=== PATIENT | female | born 1960 | race Caucasian/White ===

== ENCOUNTER 2016-07-04 15:36 | Emergency (ER) | payer OTHER ==
[2016-07-04] MEDS ORDERED: DEXAMETHASONE 10 MG/ML VIAL ONE (16:54)
[2016-07-04] MEDS ORDERED: CHERRY SYRUP 10 ML UDC PO ONE (16:54)
[2016-07-04] MEDS ORDERED: DEXAMETHASONE 10 MG/ML VIAL PO STA (16:54)
--- NOTE | 2016-07-04 16:59 | ED Physician Documentation ---
PD HPI TRUNK INJURY - Stated complaint Stated Complaint: RT SIDE PAIN - Chief complaint Chief Complaint: Abd Pain - History obtained from History obtained from: Patient - History of Present Illness Location: Right chest Type of injury: Other (leaning over the console in the car and felt a crack and has specific pain in the right chest) Timing - onset: How many weeks ago (1) Timing - duration: Weeks (1) Timing - details: Gradual onset, Still present Quality: Pain, Sharp Improved by: Rest, Immobilization, Meds Worsened by: Moving, Palpating Associated symtptoms: No: Weakness, Numbness, Tingling Contributing factors: No: Anticoagulated Where injury occured: Other (car) Similar symptoms before: Diagnosis (rib fracture with a bear hug) Recently seen: Not recently seen - Additional information Additional information: 56 y/o female has had a chest wall contusion with leaning over the console in the car. She heard a crack and she has specific pain in the right side similar to what she had when she broke a rib. This happened about a week ago and she has tried everything at home and is not getting much relief and she was expecting this to improve and about the 5th day after her pain increased and she has now come to the ED for evaluation. Her cough is not changed from her usual. Review of Systems Constitutional: denies: Fever Eyes: denies: Decreased vision Ears: denies: Ear pain Nose: denies: Congestion Throat: denies: Sore throat Cardiac: reports: Chest pain / pressure. denies: Palpitations Respiratory: reports: Cough. denies: Dyspnea GI: denies: Abdominal Pain, Nausea, Vomiting : denies: Dysuria, Frequency PD PAST MEDICAL HISTORY - Past Medical History Cardiovascular: Hypertension, [place] Respiratory: Asthma Neuro: CVA Endocrine/Autoimmune: Type 2 diabetes GI: Hiatal hernia, C.difficile, Chronic diarrhea, Hemorrhoids, Diverticulitis DEBONER: None : None, Frequency HEENT: None Psych: Post traumatic stress disorder Musculoskeletal: Osteoarthritis, Fibromyalgia, Rheumatoid arthritis, Chronic back pain Derm: Eczema - Past Surgical History Past Surgical History: Yes /DEBONER: section Cardiovascular: Coronary stent - Present Medications Home Medications: Ambulatory Orders Medication Instructions Recorded Confirmed Albuterol Sulfate [Albuterol 1 puffs IH ONCE PRN 01/25/14 03/14/15 Sulfate Hfa] Insulin Aspart Protam & Aspart 0 unit SQ ONCE PRN 01/25/14 05/01/15 [Novolog Mix 70-30 Flexpen Syrn] Insulin Glargine [Lantus] 80 units SQ ONCE PRN 01/25/14 05/01/15 Cetirizine HCl/Pseudoephedrine 1 each PO BID #30 tab.er.12h 03/06/14 03/14/15 [Zyrtec-D Tablet] Glipizide [Glucotrol] 40 mg PO DAILY 03/12/14 05/01/15 Metformin HCl [Fortamet] 1,000 mg PO BID 03/12/14 05/01/15 Atenolol 25 mg PO DAILY 07/16/15 07/16/15 Dicyclomine HCl [Bentyl] 20 mg PO QID #20 tablet 07/16/15 Levothyroxine Sodium [Synthroid] 375 mcg PO DAILY 07/16/15 07/16/15 Omeprazole [PriLOSEC] 20 mg PO DAILY 07/16/15 07/16/15 Ondansetron HCl [Zofran] 4 mg PO Q6H PRN #10 tablet 07/16/15 Oxycodone HCl/Acetaminophen 1 - 2 each PO Q6HR PRN #20 tablet 07/04/16 [Percocet 5-325 mg Tablet] - Allergies Allergies/Adverse Reactions: Allergies Allergy/AdvReac Type Severity Reaction Status Date / Time codeine Allergy Unknown Verified 05/01/15 21:13 Penicillins Allergy Unknown Verified 05/01/15 21:13 mushrooms Allergy Unknown Uncoded 03/14/15 13:47 - Social History Does the pt smoke?: Yes Smoking Status: Current every day smoker Does the pt drink ETOH?: No Does the pt have substance abuse?: No - Immunizations Immunizations are current?: Yes - POLST Patient has POLST: No PD ED PE NORMAL - Vitals Vital signs reviewed: Yes (hypertensive ) - General General: Alert and oriented X 3, No acute distress, Well developed/nourished - HEENT HEENT: Atraumatic, PERRL - Neck Neck: Supple, no meningeal sign - Cardiac Cardiac: RRR, No murmur - Respiratory Respiratory: No respiratory distress, Clear bilaterally, Other (specific point tenderness to a rib on the right without crepitnence) - Abdomen Abdomen: Soft, Non tender - Back Back: No CVA TTP, No spinal TTP - Derm Derm: Normal color, Warm and dry, No rash - Extremities Extremities: No deformity, No edema - Neuro Neuro: No motor deficit, No sensory deficit - Psych Psych: Normal mood, Normal affect Results - Vitals Vitals: Vital Signs - 24 hr 07/04/16 15:41 Temperature 36.1 C L Heart Rate 100 Respiratory 16 Rate Blood Pressure 154/82 H O2 Saturation 99 Oxygen O2 Source Room air PD MEDICAL DECISION MAKING - ED course Complexity details: reviewed old records, reviewed results, re-evaluated patient , considered differential, d/w patient, d/w family ED course: 56 y/o female with a chest wall contusion and pain in a specific rib has had this before and we discussed the utility of x-ray and that it would not likely identity management consultant. I do not suspect pneumothorax or pneumonia as a cause for her pain and here in the ED we have forgone the x-ray and she is administered decadron and we will write a script for some pain medication. Departure - Departure Disposition: 01 Home, Self Care Clinical Impression: Chest wall contusion Qualifiers: Encounter type: initial encounter Laterality: right Qualified Code(s): S20.211A - Contusion of right front wall of thorax, initial encounter Condition: Stable Instructions: ED Contusion Chest Wall Follow-Up: [facility] [Provider Group] Prescriptions: Oxycodone HCl/Acetaminophen [Percocet 5-325 mg Tablet] 1 - 2 each PO Q6HR PRN # 20 tablet PRN Reason: Pain
[2016-07-04 17:11] VITALS: BP 124/71
== END 2016-07-04 17:11 | disposition home or self-care (01) ==
LOC: ED 15:36
DX: S20.211A Contusion of right front wall of thorax, initial encounter (principal); W22.8XXA Striking against or struck by other objects, initial encounter; I10 Essential (primary) hypertension; I25.2 Old myocardial infarction; J45.909 Unspecified asthma, uncomplicated; E11.9 Type 2 diabetes mellitus without complications; Z79.4 Long term (current) use of insulin; Z79.84 Long term (current) use of oral hypoglycemic drugs; Z86.73 Personal history of transient ischemic attack (TIA), and cerebral infarction without residual deficits; Z87.19 Personal history of other diseases of the digestive system; M19.90 Unspecified osteoarthritis, unspecified site; F17.200 Nicotine dependence, unspecified, uncomplicated
CPT/HCPCS: 99283; A9270

== ENCOUNTER 2016-07-12 11:55 | Emergency (ER) | payer OTHER ==
[2016-07-12 12:04] VITALS: BP 167/90
--- NOTE | 2016-07-12 12:11 | ED Physician Documentation ---
History of Present Illness - Stated complaint Stated Complaint: R RIB PX/RX BACK PX - Chief complaint Chief Complaint: General - Additonal information Additional information: hx from pt 56 female 2 weeks ago reached across the console of her car and felt a crack in her low ant/axillary right ribs has had pain since and now it has spread to her right posterior ribs too she sent a message to her PMD at [facility] who write back that she should come to the ER for a cardiac evaluation due to her DM and HTN Review of Systems Constitutional: denies: Fever Cardiac: reports: Chest pain / pressure Respiratory: denies: Dyspnea, Cough GI: denies: Abdominal Pain, Nausea, Vomiting Immunocompromised: denies: Immunocompromised PD PAST MEDICAL HISTORY - Past Medical History Past Medical History: Yes Cardiovascular: Hypertension, [place] Respiratory: Asthma Neuro: CVA Endocrine/Autoimmune: Type 2 diabetes GI: Hiatal hernia, C.difficile, Chronic diarrhea, Hemorrhoids, Diverticulitis CONTACT LENS EDGE BUFFER: None : None, Frequency HEENT: None Psych: Post traumatic stress disorder Musculoskeletal: Osteoarthritis, Fibromyalgia, Rheumatoid arthritis, Chronic back pain Derm: Eczema - Past Surgical History Past Surgical History: Yes General: Hiatal hernia repair /CONTACT LENS EDGE BUFFER: section Cardiovascular: Coronary stent - Present Medications Home Medications: Ambulatory Orders Medication Instructions Recorded Confirmed Albuterol Sulfate [Albuterol 1 puffs IH PRN PRN 01/25/14 03/14/15 Sulfate Hfa] Insulin Aspart Protam & Aspart 50 unit SQ ONCE PRN 01/25/14 05/01/15 [Novolog Mix 70-30 Flexpen Syrn] Insulin Glargine [Lantus] 10 units SQ ONCE PRN 01/25/14 05/01/15 Glipizide [Glucotrol] 5 mg PO DAILY 03/12/14 07/12/16 Metformin HCl [Fortamet] 1,000 mg PO BID 03/12/14 07/12/16 Atenolol 25 mg PO DAILY 07/16/15 07/12/16 Levothyroxine Sodium [Synthroid] 137 mcg PO DAILY 07/16/15 07/12/16 Omeprazole [PriLOSEC] 40 mg PO DAILY 07/16/15 07/12/16 Lidocaine Patch 5% [Lidoderm Patch] 1 each TOP DAILY PRN #10 patch 07/12/16 Oxycodone HCl/Acetaminophen 4 - 8 each PO Q6HR PRN 07/12/16 07/12/16 [Percocet 5-325 mg Tablet] - Allergies Allergies/Adverse Reactions: Allergies Allergy/AdvReac Type Severity Reaction Status Date / Time codeine Allergy Unknown Verified 07/12/16 12:06 Penicillins Allergy Unknown Verified 07/12/16 12:06 mushrooms Allergy Unknown Uncoded 03/14/15 13:47 - Social History Does the pt smoke?: Yes Smoking Status: Current every day smoker Does the pt drink ETOH?: No Does the pt have substance abuse?: No - Immunizations Immunizations are current?: Yes - POLST Patient has POLST: No PD ED PE NORMAL - Vitals Vital signs reviewed: Yes - Cardiac Cardiac: RRR - Respiratory Respiratory: No respiratory distress, Clear bilaterally, Other (TTP ante to lateral low right ribs s crepitus or bruising, no abd TTP, no neck TTP) - Abdomen Abdomen: Soft, Non tender - Back Back: No spinal TTP - Derm Derm: Normal color - Neuro Neuro: Alert and oriented X 3 Results - Vitals Vitals: Vital Signs - 24 hr 07/12/16 07/12/16 12:00 13:50 Temperature 36.6 C Heart Rate 93 84 Respiratory 18 18 Rate Blood Pressure 167/90 H O2 Saturation 97 97 Oxygen O2 Source Room air - Labs Labs: Laboratory Tests 07/12/16 12:25 Troponin I < 0.04 - Rads (name of study) ribs CXR Radiology: See rad report (minimally displaced R 7th rib fx no pneumo) PD MEDICAL DECISION MAKING - ED course ED course: sounds very mechanical and pot has chest wall TTP - sent by PMD for a cardiac eval - will get trop and if neg after two weeks of pain think ACS is effectively ruled out Departure - Departure Disposition: 01 Home, Self Care Clinical Impression: Rib fracture Qualifiers: Encounter type: initial encounter Rib fracture type: single rib Fracture type: closed Laterality: right Qualified Code(s): S22.31XA - Fracture of one rib, right side, initial encounter for closed fracture Condition: Good Instructions: ED Fx Rib Follow-Up: Cary Krueger MD [Primary Care Provider] - Prescriptions: Lidocaine Patch 5% [Lidoderm Patch] 1 each TOP DAILY PRN #10 patch PRN Reason: Pain Ibuprofen [Motrin] 400 mg PO Q6H PRN #30 tablet PRN Reason: Pain Comments: Your heart checked out fine Your xray shows a rib fracture where you hurt - but no underlying lung injury Recommend using lidocaine patches and tylenol for the pain - motrin would help too but you cannot take motrin due to GI upset Please use the breathing device we gave you to help keep your lungs inflated and prevent collapse Also please follow up with your PMD about your blood pressure - it was high today
--- NOTE | 2016-07-12 13:07 | XRAY Preliminary Report ---
Exam: XR Ribs w/PA Chest RT IMPRESSION: Findings highly suspicious for minimally displaced fracture of the anterior right seventh rib. The previously noted anterior right ninth rib fracture is not as well visualized on this exam. [facility] SITE ID: [id number]
--- NOTE | 2016-07-12 13:10 | XRAY Report ---
EXAM: RIGHT RIB RADIOGRAPHY AND PA CHEST EXAM DATE: 07/12/2016 12:43 PM. CLINICAL HISTORY: Right rib pain after injury 2 weeks ago. COMPARISON: 02/01/2015. TECHNIQUE: 2 views right ribs. One view chest. FINDINGS: Bones: Findings suspicious for a minimally displaced distal anterior right seventh rib fracture. No o ther displaced or definite rib fractures or acute bone lesions. Degenerative disease of the thoracic spine. Lungs: No focal opacities evident. No pneumothorax or pleural effusions. Mediastinum: Heart and cardiomediastinal contours are unremarkable. Other: None. IMPRESSION: Findings highly suspicious for minimally displaced fracture of the anterior right seventh rib. The previously noted anterior right ninth rib fracture is not as well visualized on this exam. [facility] Referring Provider Line: [phone] SITE ID: [id number]
== END 2016-07-12 14:26 | disposition home or self-care (01) ==
LOC: ED 11:55
DX: S22.31XA Fracture of one rib, right side, initial encounter for closed fracture (principal); X50.0XXA Overexertion from strenuous movement or load, initial encounter; I10 Essential (primary) hypertension; I25.2 Old myocardial infarction; J45.909 Unspecified asthma, uncomplicated; E11.9 Type 2 diabetes mellitus without complications; Z79.4 Long term (current) use of insulin; M19.90 Unspecified osteoarthritis, unspecified site; M79.7 Fibromyalgia; M06.9 Rheumatoid arthritis, unspecified; Z86.73 Personal history of transient ischemic attack (TIA), and cerebral infarction without residual deficits; F17.200 Nicotine dependence, unspecified, uncomplicated
CPT/HCPCS: 36415; 84484; 99283; 99284

== ENCOUNTER 2016-08-17 19:01 | Emergency (ER) | payer OTHER ==
[2016-08-17 19:23] LABS: BILIRUBIN,URINE NEGATIVE (NEGATIVE)
[2016-08-17 19:25] LABS: UA CHARGE (STRIP ONLY) YES; UR CULTURE IF IND NOT INDICATED
[2016-08-17 20:11] LABS: CALCIUM 8.9 mg/dL (8.5-10.3); CREATININE 0.5 mg/dL (0.4-1.0); POTASSIUM 4.2 mmol/L (3.5-5.0)
[2016-08-17 20:29] LABS: HEMOGLOBIN A1C 1.69 g/dL
[2016-08-17 21:05] LABS: BASOPHILS # (AUTO) 0.1 10^3/uL (0.0-0.1); BASOPHILS % (AUTO) 0.4 %; HCT - HEMATOCRIT 40.7 % (37.0-47.0); HGB - HEMOGLOBIN 13.2 g/dL (12.0-16.0); LYMPHOCYTES # (AUTO) 1.8 10^3/uL (1.5-3.5); LYMPHOCYTES % (AUTO) 13.2 %; MEAN CORPUSCULAR HEMOGLOBIN 29.5 pg (27.0-31.0); MEAN CORPUSCULAR HGB CONC 32.5 g/dL (32.0-36.0); MEAN CORPUSCULAR VOLUME 90.9 fL (81.0-99.0); MEAN PLATELET VOLUME 9.1 fL (7.9-10.8); MONOCYTES # (AUTO) 0.6 10^3/uL (0.0-1.0); MONOCYTES % (AUTO) 4.7 %; NEUTROPHILS % (AUTO) 81.7 %; RED BLOOD COUNT 4.48 10^6/uL (4.20-5.40); UNCORRECTED WHITE BLOOD COUNT 13.5 x10^3/uL; WHITE BLOOD COUNT 13.5 x10^3/uL (4.8-10.8)
--- NOTE | 2016-08-17 21:42 | ED Physician Documentation ---
History of Present Illness - Stated complaint Stated Complaint: LOW BLOOD SUGAR - Chief complaint Chief Complaint: General - History obtained from History obtained from: Patient - Additonal information Additional information: Patient is a pleasant 56-year-old female with a history of type 2 diabetes on Lantus, NovoLog, and a maximal dose metformin also with glipizide. She has been running high for the past couple weeks but today had a low blood sugar. She treated it at home with the administration of juice with sugar and currently feels better. In general she has been losing weight over the The last 6 months. She denies any signs or symptoms of infection. There is no chest pain, shortness of breath, nausea, vomiting, constipation or diarrhea. She denies any lower urinary symptoms. She does take her Lantus at irregular times Most on a as needed basis. She is supposed to take 50 units nightly. She is on a sliding scale for the NovoLog which she mostly adheres to. Review of systems: For pertinent positive and negatives in the review of systems please see history of present illness. Otherwise all other systems have been reviewed and are negative. Dragon disclaimer: Parts of this medical record were created using voice recognition technology. Because of the inherent limitations of this system occasional same sounding word substitutions do occur and persist despite proofreading. Please read the document for context. Review of Systems Ten Systems: 10 systems reviewed and negative Constitutional: denies: Fever, Chills Cardiac: denies: Chest pain / pressure, Palpitations Respiratory: denies: Dyspnea, Cough GI: reports: Nausea. denies: Abdominal Pain, Abdominal Swelling, Diarrhea, Hematemesis : denies: Dysuria, Frequency, Hesitancy PD PAST MEDICAL HISTORY - Past Medical History Cardiovascular: Hypertension, [place] Respiratory: Asthma Neuro: CVA Endocrine/Autoimmune: Type 2 diabetes GI: Hiatal hernia, C.difficile, Chronic diarrhea, Hemorrhoids, Diverticulitis CABLE PULLER: None : None, Frequency HEENT: None Psych: Post traumatic stress disorder Musculoskeletal: Osteoarthritis, Fibromyalgia, Rheumatoid arthritis, Chronic back pain Derm: Eczema - Past Surgical History Past Surgical History: Yes General: Hiatal hernia repair /CABLE PULLER: section Cardiovascular: Coronary stent - Present Medications Home Medications: Ambulatory Orders Medication Instructions Recorded Confirmed Albuterol Sulfate [Albuterol 1 puffs IH PRN PRN 12/20/14 07/12/17 Sulfate Hfa] Insulin Aspart Protam & Aspart 50 unit SQ ONCE PRN 01/25/14 08/17/16 [Novolog Mix 70-30 Flexpen Syrn] Insulin Glargine [Lantus] 10 units SQ ONCE PRN 01/25/14 08/17/16 Glipizide [Glucotrol] 5 mg PO DAILY 03/12/14 08/17/16 Metformin HCl [Fortamet] 1,000 mg PO BID 03/12/14 08/17/16 Atenolol 25 mg PO DAILY 07/16/15 08/17/16 Levothyroxine Sodium [Synthroid] 137 mcg PO DAILY 07/16/15 08/17/16 Omeprazole [PriLOSEC] 40 mg PO DAILY 07/16/15 08/17/16 Lidocaine Patch 5% [Lidoderm Patch] 1 each TOP DAILY PRN #10 patch 07/12/1601/22 Oxycodone HCl/Acetaminophen 4 - 8 each PO Q6HR PRN 07/12/16 08/17/16 [Percocet 5-325 mg Tablet] - Allergies Allergies/Adverse Reactions: Allergies Allergy/AdvReac Type Severity Reaction Status Date / Time codeine Allergy Unknown Verified 07/12/16 12:06 Penicillins Allergy Unknown Verified 07/12/16 12:06 mushrooms Allergy Unknown Uncoded 03/14/15 13:47 - Social History Does the pt smoke?: Yes Smoking Status: Current every day smoker Does the pt drink ETOH?: No Does the pt have substance abuse?: No - Immunizations Immunizations are current?: Yes - POLST Patient has POLST: No PD ED PE NORMAL - General General: Alert and oriented X 3, No acute distress, Well developed/nourished, Other (Mild central obesity) - HEENT HEENT: Atraumatic - Neck Neck: Supple, no meningeal sign - Cardiac Cardiac: RRR, No murmur, No gallop, No rub - Respiratory Respiratory: No respiratory distress - Abdomen Abdomen: Normal bowel sounds, Soft, Non tender, Non distended - Female Female : Deferred - Back Back: No CVA TTP - Derm Derm: Normal color, Warm and dry - Extremities Extremities: No deformity, No tenderness to palpate - Neuro Neuro: Alert and oriented X 3, No motor deficit, No sensory deficit - Psych Psych: Normal mood, Normal affect Results - Vitals Vitals: Vital Signs - 24 hr 08/17/16 08/17/16 19:04 20:45 Temperature 35.7 C L Heart Rate 108 H 94 Respiratory 18 14 Rate Blood Pressure 140/86 H 131/74 H O2 Saturation 99 97 Oxygen O2 Source Room air - Labs Labs: Laboratory Tests 08/17/16 08/17/16 08/17/16 19:08 19:19 19:57 WBC RBC Hgb Hct MCV MCH MCHC RDW Plt Count MPV Neut # Lymph # Bent # Eos # Baso # Absolute Nucleated RBC Nucleated RBCs Sodium Potassium Chloride Carbon Dioxide Anion Gap BUN Creatinine Estimated GFR (MDRD) Glucose POC Whole Bld Glucose 189 H 191 H Glycated Hemoglobin Estim Average Glucose Calcium Urine Color YELLOW Urine Clarity CLEAR Urine pH 5.0 Ur Specific [place] 1.015 Urine Protein NEGATIVE Urine Glucose (UA) 100 H Urine Ketones NEGATIVE Urine Occult Blood NEGATIVE Urine Nitrite NEGATIVE Urine Bilirubin NEGATIVE Urine Urobilinogen 0.2 (NORMAL) Ur Leukocyte Esterase NEGATIVE Ur Microscopic Review NOT INDICATED Urine Culture Comments NOT INDICATED 08/17/16 08/17/16 08/17/16 19:58 19:58 19:58 WBC 13.5 H RBC 4.48 Hgb 13.2 Hct 40.7 MCV 90.9 MCH 29.5 MCHC 32.5 RDW 14.0 Plt Count 341 MPV 9.1 Neut # 11.0 H Lymph # 1.8 Bent # 0.6 Eos # 0.0 Baso # 0.1 Absolute Nucleated RBC 0.01 Nucleated RBCs 0.0 Sodium 137 Potassium 4.2 Chloride 108 Carbon Dioxide 20 L Anion Gap 9.0 BUN 9 Creatinine 0.5 Estimated GFR (MDRD) 128 Glucose 198 H POC Whole Bld Glucose Glycated Hemoglobin 13.3 H Estim Average Glucose 335 H Calcium 8.9 Urine Color Urine Clarity Urine pH Ur Specific [place] Urine Protein Urine Glucose (UA) Urine Ketones Urine Occult Blood Urine Nitrite Urine Bilirubin Urine Urobilinogen Ur Leukocyte Esterase Ur Microscopic Review Urine Culture Comments PD MEDICAL DECISION MAKING - ED course Complexity details: reviewed results, re-evaluated patient, considered differential, d/w patient, d/w family ED course: Patient is a pleasant 56-year-old female who has had elevated blood sugars for the past couple weeks but had an episode of hypoglycemia today. She recalls not eating a normal meal this morning. Currently her blood sugar is in the 180 mg/dL range. Her physical exam is unremarkable. Testing on this patient shows mild elevation of white count of 13 which is probably stress demargination from hypoglycemia as I do not see or find any evidence of infection. Her CO2 is also slightly low which is probably from hypoglycemic episode. She has no evidence of infection on urinalysis. The patient was watched here for couple hours and is doing well she has had no recurrent symptoms. I did recommend that she take her Lantus on a regular basis at a regular time and not try and use it on a as needed basis and change the times of administration based on blood sugar. I did recommend that she continues in NovoLog in this fashion however. I did stress the importance of eating regular low glycemic diets. She will continue to watch her blood sugar closely for the next couple days and seek evaluation her physician or return if it continues to drop. Disposition: To home Clinical impression: 1. diabetes type 2 uncontrolled hyperglycemia Departure - Departure Disposition: 01 Home, Self Care Clinical Impression: Blood glucose abnormal, Hypoglycemia associated with type 2 diabetes mellitus Condition: Good Instructions: ED Diabetes Hypoglycemia Oral Agent, ED Diet Diabetic Follow-Up: Cary Krueger MD [Primary Care Provider] -
[2016-08-17 21:49] VITALS: BP 136/100
== END 2016-08-17 21:46 | disposition home or self-care (01) ==
LOC: ED 19:01
DX: E11.649 Type 2 diabetes mellitus with hypoglycemia without coma (principal); F17.200 Nicotine dependence, unspecified, uncomplicated; I10 Essential (primary) hypertension; I25.2 Old myocardial infarction; Z79.4 Long term (current) use of insulin; Z79.84 Long term (current) use of oral hypoglycemic drugs; Z86.73 Personal history of transient ischemic attack (TIA), and cerebral infarction without residual deficits
CPT/HCPCS: 36415; 80048; 81001; 81003; 83036; 85025; 87086; 99283; 99284

== ENCOUNTER 2016-09-20 13:13 | Outpatient (CLI) | payer OTHER | END 2016-09-20 13:14 | disposition critical access hospital (66) | LOC: EMS 13:13 | PROVIDERS: ATTEND Surgery | DX: E16.2 Hypoglycemia, unspecified (principal) ==

== ENCOUNTER 2016-09-20 17:58 | Emergency (ER) | payer OTHER ==
[2016-09-20] MEDS ORDERED: HYDROmorphone 1 MG/ML SYRINGE IM STA ×2 (19:11→20:53)
--- NOTE | 2016-09-20 19:14 | ED Physician Documentation ---
History of Present Illness - Stated complaint Stated Complaint: BILAT LEG PX - Chief complaint Chief Complaint: General - History obtained from History obtained from: Patient - History of Present Illness Timing: Other (56-year-old with diabetes, coronary disease, and tobacco abuse. She felt like her blood sugar went low around noon today and had a near syncopal episode landing on her rear end. She had gradual onset severe bilateral knee, ankle, and foot pain after this not alleviated by 3 Vicodin she took at home. Her blood sugars have been on the high side ever since this episode, 244 and 144.) Review of Systems Constitutional: reports: Reviewed and negative Cardiac: reports: Reviewed and negative Respiratory: reports: Reviewed and negative PD PAST MEDICAL HISTORY - Past Medical History Cardiovascular: Hypertension, [place] Respiratory: Asthma Neuro: CVA Endocrine/Autoimmune: Type 2 diabetes GI: Hiatal hernia, C.difficile, Chronic diarrhea, Hemorrhoids, Diverticulitis DIAGNOSTIC ASSISTANT: None : None, Frequency HEENT: None Psych: Post traumatic stress disorder Musculoskeletal: Osteoarthritis, Fibromyalgia, Rheumatoid arthritis, Chronic back pain Derm: Eczema - Past Surgical History Past Surgical History: Yes General: Hiatal hernia repair /DIAGNOSTIC ASSISTANT: section Cardiovascular: Coronary stent - Present Medications Home Medications: Ambulatory Orders Medication Instructions Recorded Confirmed Albuterol Sulfate [Albuterol 1 puffs IH PRN PRN 01/25/14 09/20/16 Sulfate Hfa] Insulin Aspart Protam & Aspart 50 unit SQ DAILY 01/25/14 09/20/16 [Novolog Mix 70-30 Flexpen Syrn] Insulin Glargine [Lantus] 10 units SQ ONCE PRN 01/25/14 09/20/16 Metformin HCl [Fortamet] 1,000 mg PO BID 03/12/14 09/20/16 Atenolol 25 mg PO DAILY 07/16/15 09/20/16 Levothyroxine Sodium [Synthroid] 137 mcg PO DAILY 07/16/15 09/20/16 Omeprazole [PriLOSEC] 40 mg PO DAILY 07/16/15 09/20/16 Lidocaine Patch 5% [Lidoderm Patch] 1 each TOP DAILY PRN #10 patch 07/12/16 Gabapentin 300 mg PO TID #30 capsule 09/20/16 - Allergies Allergies/Adverse Reactions: Allergies Allergy/AdvReac Type Severity Reaction Status Date / Time codeine Allergy Unknown Verified 07/12/16 12:06 Penicillins Allergy Unknown Verified 07/12/16 12:06 mushrooms Allergy Unknown Uncoded 03/14/15 13:47 - Social History Does the pt smoke?: Yes Smoking Status: Current every day smoker Does the pt drink ETOH?: No Does the pt have substance abuse?: No - Immunizations Immunizations are current?: Yes - POLST Patient has POLST: No PD ED PE NORMAL - Vitals Vital signs reviewed: Yes - General General: Alert and oriented X 3, No acute distress - Extremities Extremities: Other (Hips are nontender, she seems to have diffuse hyperesthesia to all areas of the legs below the knees, there is no deformity. There is no area that is not really tender, both knees and ankles and feet are diffusely tender. This is mostly consistent with probably some sort of exacerbation of her neuropathy as opposed to a focal injury,) - Neuro Neuro: Alert and oriented X 3, Normal speech - Psych Psych: Normal mood, Normal affect Results - Vitals Vitals: Vital Signs - 24 hr 09/20/16 09/20/16 09/20/16 18:00 19:23 20:04 Temperature 36.5 C 36.8 C 36.6 C Heart Rate 107 H 88 84 Respiratory 18 22 11 L Rate Blood Pressure 131/84 H 122/68 119/72 O2 Saturation 98 100 99 Oxygen O2 Source Room air - Labs Labs: Laboratory Tests 09/20/16 18:34 POC Whole Bld Glucose 148 H - Rads (name of study) Xrays B Knees, Ankles, Feet Radiology: EMP read contemporaneously (all neg) PD MEDICAL DECISION MAKING - ED course ED course: She presents after a fall, no immediate injury but now has severe diffuse pain below the knees. Examination is not consistent with a focal in injury, more like a fibromyalgia flare or neuropathy exacerbation. Departure - Departure Disposition: 01 Home, Self Care Clinical Impression: Hypoglycemia associated with type 2 diabetes mellitus, Right leg pain, Left leg pain Condition: Good Record reviewed to determine appropriate education?: Yes Instructions: ED Contusion Lower Ext Prescriptions: Gabapentin 300 mg PO TID #30 capsule Comments: Call your doctor to arrange a follow-up appointment, make the next available appointment. In the interim, return anytime if worse or if new symptoms develop.
[2016-09-20] MEDS ORDERED: HYDROmorphone 1 MG/ML SYRINGE ONE ×2 (19:19→21:16)
--- NOTE | 2016-09-20 20:24 | XRAY Preliminary Report ---
Exam: XR Ankle 3 View BILAT IMPRESSION: Negative bilateral ankle radiography. [facility] SITE ID: [id number]
--- NOTE | 2016-09-20 20:25 | XRAY Report ---
EXAMS: 1. Right Ankle Radiography 2. Left Ankle Radiography EXAM DATE: 09/20/2016 08:04 PM. CLINICAL HISTORY: Bilateral ankle pain. COMPARISON: None. TECHNIQUE: 3 views each ankle. FINDINGS: Right Ankle: Bones: Normal. No fractures or bone lesions. Joints: Normal. No effusion. No subluxations. The ankle mortise is normally aligned. Soft Tissues: Normal. No soft tissue swelling. Left Ankle: Bones: Normal. No fractures or bone lesions. Joints: Normal. No effusion. No subluxations. The ankle mortise is normally aligned. Soft Tissues: Normal. No soft tissue swelling. IMPRESSION: Negative bilateral ankle radiography. [facility] Referring Provider Line: [phone] SITE ID: [id number]
--- NOTE | 2016-09-20 20:44 | XRAY Preliminary Report ---
Exam: XR Foot 3 View BILAT IMPRESSION: Negative bilateral feet radiography. [facility] SITE ID: [id number]
--- NOTE | 2016-09-20 20:46 | XRAY Report ---
EXAMS: 1. Right Foot Radiography 2. Left Foot Radiography EXAM DATE: 09/20/2016 08:04 PM. CLINICAL HISTORY: Foot pain. COMPARISON: None. TECHNIQUE: 3 views each foot. FINDINGS: Right: Bones: Normal. No fractures or bone lesions. Joints: Normal. No subluxations. Soft Tissues: Normal. No soft tissue swelling. Left: Bones: Normal. No fractures or bone lesions. Joints: Normal. No subluxations. Soft Tissues: Normal. No soft tissue swelling. IMPRESSION: Negative bilateral feet radiography. [facility] Referring Provider Line: [phone] SITE ID: [id number]
--- NOTE | 2016-09-20 20:46 | XRAY Preliminary Report ---
Exam: XR Knee 4 View BILAT IMPRESSION: No evidence of fracture or dislocation. [facility] SITE ID: [id number]
--- NOTE | 2016-09-20 20:47 | XRAY Report ---
EXAMS: 1. Right Knee Radiography 2. Left Knee Radiography EXAM DATE:09/20/2016 08:04 PM. CLINICAL HISTORY:Knee pain COMPARISON: None. TECHNIQUE: 4 views each. FINDINGS: Right Knee: Bones: Normal. No fractures or bone lesions. Joints: Normal. No effusion. No subluxations. Soft Tissues: Normal. No soft tissue swelling. Left Knee: Bones: Normal. No fractures or bone lesions. Joints: Normal. No effusion. No subluxations. Soft Tissues: Normal. No soft tissue swelling. IMPRESSION: No evidence of fracture or dislocation. [facility] Referring Provider Line: [phone] SITE ID: [id number]
[2016-09-20] MEDS ORDERED: KETOROLAC 60 MG/2 ML VIAL IM STA (20:53)
[2016-09-20] MEDS ORDERED: GABAPENTIN 100 MG CAPSULE PO STA (20:53)
[2016-09-20] MEDS ORDERED: GABAPENTIN 300 MG CAPSULE ONE (21:17)
[2016-09-20 21:50] VITALS: BP 138/91
== END 2016-09-20 21:56 | disposition home or self-care (01) ==
LOC: ED 17:58
DX: E11.649 Type 2 diabetes mellitus with hypoglycemia without coma (principal); M79.605 Pain in left leg; M79.604 Pain in right leg; I10 Essential (primary) hypertension; I25.10 Atherosclerotic heart disease of native coronary artery without angina pectoris; I25.2 Old myocardial infarction; Z95.5 Presence of coronary angioplasty implant and graft; F17.200 Nicotine dependence, unspecified, uncomplicated; Z79.4 Long term (current) use of insulin; Z79.84 Long term (current) use of oral hypoglycemic drugs
CPT/HCPCS: 73564; 73610; 73630; 96372; 99283; 99284; A9270; J1170

== ENCOUNTER 2017-04-04 23:37 | Emergency (ER) | payer OTHER ==
[2017-04-04] MEDS ORDERED: LIDOCAINE 2% 10 ML MDV SUBQ STA (23:52)
[2017-04-04] MEDS ORDERED: TETANUS/DIPHTHERIA/PERTUSSIS 0.5 ML SYRINGE IM ONE (23:52)
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
--- NOTE | 2017-04-05 01:07 | XRAY Preliminary Report ---
Exam: XR HAND 3 VIEW LT IMPRESSION: 1. No acute left hand bony abnormality. Shrapnel within the soft tissues adjacent to the fifth metaca rpal. 2. Advanced degenerative joint disease. [facility] SITE ID: [id number]
[2017-04-05] MEDS ORDERED: cephALEXin 250 MG CAPSULE PO STA (01:30)
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
[2017-04-05 01:48] VITALS: BP 141/88
[2017-04-05] MEDS ORDERED: oxyCOD/ACETAMIN 5 MG/325 MG TABLET PO STA (01:52)
== END 2017-04-05 01:58 | disposition home or self-care (01) ==
LOC: ED 23:37
DX: S61.422A Laceration with foreign body of left hand, initial encounter (principal); W32.0XXA Accidental handgun discharge, initial encounter; Y93.89 Activity, other specified; Y92.009 Unspecified place in unspecified non-institutional (private) residence as the place of occurrence of the external cause; Z23 Encounter for immunization; I10 Essential (primary) hypertension; E11.9 Type 2 diabetes mellitus without complications; Z79.4 Long term (current) use of insulin; F17.200 Nicotine dependence, unspecified, uncomplicated
CPT/HCPCS: 12001; 73130; 90471; 90715; 99283; 99284; A9270

== ENCOUNTER 2017-08-31 08:59 | Outpatient (CLI) | payer OTHER ==
--- NOTE | 2017-09-01 15:01 | Mammography Report ---
Procedure Date: 08/31/2017 Accession Number: [id number] / [id number] Procedure: MGN - Screening Mammo Dig Bilat CPT Code: FULL RESULT: EXAM: Screening Mammo Dig Bilat DATE: 08/31/2017 9:15 AM CLINICAL HISTORY: 57-year-old female reports a 70 pound weight loss since her last mammogram presents for screening mammogram. TECHNIQUE: Bilateral CC and MLO views were obtained. COMPARISON: 02/08/2013. FINDINGS: The breasts demonstrate scattered fibroglandular densities bilaterally. No suspicious masses, clustered microcalcifications, or regions of architectural distortion are identified. IMPRESSION: Negative examination RECOMMENDATION: Routine annual screening unless otherwise clinically indicated. BIRADS CATEGORY 1: Negative STANDARD QUALIFYING STATEMENTS: 1. This examination was reviewed with the aid of Computer-Aided Detection (CAD). 2. A negative or benign imaging report should not delay biopsy if clinically suspicious findings are present. Consider surgical consultation if warrented. More than 5% of cancers are not identified by imaging. 3. Dense breasts may obscure an underlying neoplasm.
== END 2017-08-31 09:00 | disposition home or self-care (01) ==
LOC: DI.N 08:59
PROVIDERS: ATTEND Nurse Practitioner Acute Care
DX: Z12.31 Encounter for screening mammogram for malignant neoplasm of breast (principal)
CPT/HCPCS: 77067

== ENCOUNTER 2018-05-31 13:23 | Emergency (ER) | payer OTHER ==
[2018-05-31 13:29] VITALS: BP 141/86
--- NOTE | 2018-05-31 14:12 | XRAY Report ---
Reason: injury no w/pain and swelling Procedure Date: 05/31/2018 Accession Number: [id number] / [id number] Procedure: XR - Hand 3 View RT CPT Code: FULL RESULT: EXAM: RIGHT HAND RADIOGRAPHY EXAM DATE: 05/31/2018 01:36 PM. CLINICAL HISTORY: Injury, now w/pain and swelling. COMPARISON: HAND 3 VIEW LT 04/05/2017 12:16 AM. WRIST 3 VIEW RT 09/26/2014 1:23 PM. WRIST 4 VIEW RT 05/31/2018 1:36 PM. TECHNIQUE: 3 views. FINDINGS: Bones: The bones are qualitatively osteopenic; this limits evaluation for underlying fractures or masses. Well-corticated osseous fragment in the region of the first carpometacarpal interaction interval increase in size compared to the 2014 study, likely heterotopic calcification. No fracture is detected. There is a mild irregularity along the lateral tip of the distal radius without a definite fracture or dislocation detected. Joints: Erosive degenerative changes of the interphalangeal joints of all digits. Soft Tissues: Normal. No soft tissue swelling. IMPRESSION: Erosive arthritis. Limited sensitivity for a fracture given osteopenia. Within these limitations, subtle irregularity about the distal radius should be correlated to point tenderness. [facility]
--- NOTE | 2018-05-31 14:28 | ED Physician Documentation ---
PD HPI UPPER EXT INJURY - Stated complaint Stated Complaint: WRIST INJURY - Chief complaint Chief Complaint: Ext Problem - History obtained from History obtained from: Patient - History of Present Illness Location: Right, Wrist Type of injury: Fall Timing - onset: Yesterday Worsened by: Moving, Palpating Associated symptoms: Swelling. No: Weakness, Numbness Similar symptoms before: Has not had sx before - Additonal information Additional information: The patient is a 58-year-old female who fell yesterday on outstretched right hand. She presents now with pain in her right wrist. She is right-hand dominant. She denies any other injuries. She has history of osteoarthritis. Review of Systems Constitutional: denies: Fever Nose: denies: Congestion Cardiac: denies: Chest pain / pressure Respiratory: denies: Dyspnea GI: denies: Nausea, Vomiting Skin: denies: Rash, Abrasion (s) Musculoskeletal: reports: Joint pain (right wrist). denies: Back pain Neurologic: denies: Head injury PD PAST MEDICAL HISTORY - Past Medical History Past Medical History: Yes Cardiovascular: Hypertension, [place] Respiratory: Asthma Endocrine/Autoimmune: Type 2 diabetes GI: Hiatal hernia, C.difficile, Chronic diarrhea, Hemorrhoids, Diverticulitis MANAGER MATERIAL: None : None, Frequency HEENT: None Psych: Post traumatic stress disorder Musculoskeletal: Osteoarthritis, Fibromyalgia, Rheumatoid arthritis, Osteopenia, Chronic back pain Derm: Eczema - Past Surgical History Past Surgical History: Yes General: Hiatal hernia repair /MANAGER MATERIAL: section Cardiovascular: Coronary stent - Present Medications Home Medications: Ambulatory Orders Medication Instructions Recorded Confirmed Albuterol Sulfate [Albuterol 1 puffs IH PRN PRN 01/25/14 09/20/16 Sulfate Hfa] Metformin HCl [Fortamet] 1,000 mg PO BID 03/12/14 09/20/16 Atenolol 25 mg PO DAILY 07/16/15 09/20/16 Levothyroxine Sodium [Synthroid] 137 mcg PO DAILY 07/16/15 09/20/16 Omeprazole [PriLOSEC] 40 mg PO DAILY 07/16/15 09/20/16 Lidocaine Patch 5% [Lidoderm Patch] 1 each TOP DAILY PRN #10 patch 07/12/16 09/20/16 Clopidogrel [Plavix] 05/31/18 Cyclobenzaprine [Flexeril] 0 mg 05/31/18 Empagliflozin [Jardiance] 10 mg PO 05/31/18 Rosuvastatin Calcium 5 mg PO 05/31/18 - Allergies Allergies/Adverse Reactions: Allergies Allergy/AdvReac Type Severity Reaction Status Date / Time codeine Allergy Unknown Verified 05/31/18 13:29 Penicillins Allergy Unknown Verified 05/31/18 13:29 mushrooms Allergy Unknown Uncoded 05/31/18 13:29 - Social History Does the pt smoke?: Yes Smoking Status: Current every day smoker Does the pt drink ETOH?: No Does the pt have substance abuse?: No - Immunizations Immunizations are current?: No Immunizations: TDAP >10years/unknown - POLST Patient has POLST: No PD ED PE NORMAL - Vitals Vital signs reviewed: Yes (Borderline hypertension initially.) - General General: Alert and oriented X 3, Well developed/nourished - HEENT HEENT: Atraumatic - Neck Neck: No bony TTP - Cardiac Cardiac: RRR - Respiratory Respiratory: No respiratory distress, Clear bilaterally - Back Back: No spinal TTP - Derm Derm: No rash - Extremities Extremities: Other (There is slight soft tissue swelling at the radial aspect of the right wrist, with associated tenderness to palpation. There is no break in the integument, and no erythema. She has decreased flexion and extension of the wrist due to pain. Supination and pronation of the forearm are intact. Distal neurovascular is intact.) - Neuro Neuro: Alert and oriented X 3, No motor deficit, No sensory deficit Results - Vitals Vitals: Vital Signs - 24 hr 05/31/18 13:26 Temperature 36.2 C L Heart Rate 85 Respiratory 17 Rate Blood Pressure 141/86 H O2 Saturation 98 Oxygen O2 Source Room air - Rads (name of study) right wrist Radiology: Prelim report reviewed, EMP read contemporaneously, See rad report (Erosive arthritis. Osteopenia limits sensitivity of her fracture. Within these limitations, subtle irregularity about the distal radius should be correlated to point tenderness.) PD MEDICAL DECISION MAKING - ED course Complexity details: reviewed results, re-evaluated patient, considered differential, d/w patient, d/w family ED course: The patient's presentation is most consistent with right wrist sprain. There may be a nondisplaced occult fracture of the distal radius, although her osteoarthritis limits the ability to see such a fracture if it is present. Treatment would be the same regardless of whether it is an occult fracture or a wrist sprain. Treatment in the emergency department included application of a thumb spica splint. I discussed with her and her female consumer advocate the diagnosis, symptomatic treatment and outpatient follow-up, as well as potentially worrisome signs or symptoms that should prompt reevaluation in the emergency department. Departure - Departure Disposition: 01 Home, Self Care Clinical Impression: Right wrist sprain Qualifiers: Encounter type: initial encounter Qualified Code(s): S63.501A - Unspecified sprain of right wrist, initial encounter Condition: Stable Instructions: ED Sprain Wrist Follow-Up: TOMASZ BOURGEOIS ARNP [Primary Care Provider] - Comments: Keep your right hand elevated as much the time as possible. Apply ice pack intermittently for the next 3 days. Use the Velcro wrist splint as long as it provides comfort. Let pain be your guide to activity level. Follow-up with your primary physician within 1 to 2 weeks. Call to schedule an appointment. Return to the emergency department if you develop markedly increasing pain or swelling, or otherwise worsening times.
--- NOTE | 2018-05-31 15:19 | XRAY Report ---
Reason: injury w/pain and swelling Procedure Date: 05/31/2018 Accession Number: [id number] / [id number] Procedure: XR - Wrist 4 View RT CPT Code: FULL RESULT: EXAM: RIGHT HAND RADIOGRAPHY EXAM DATE: 05/31/2018 01:36 PM. CLINICAL HISTORY: Injury, now with pain and swelling. COMPARISON: HAND 3 VIEW LT 04/05/2017 12:16 AM. WRIST 3 VIEW RT 09/26/2014 1:23 PM. WRIST 4 VIEW RT 05/31/2018 1:36 PM. TECHNIQUE: 3 views. FINDINGS: Bones: The bones are qualitatively osteopenic; this limits evaluation for underlying fractures or masses. Well-corticated osseous fragment in the region of the first carpometacarpal interaction interval increase in size compared to the 2014 study, likely heterotopic calcification. No fracture is detected. There is a mild irregularity along the lateral tip of the distal radius without a definite fracture or dislocation detected. Joints: Erosive degenerative changes of the interphalangeal joints of all digits. Soft Tissues: Normal. No soft tissue swelling. IMPRESSION: Erosive arthritis. Limited sensitivity for a fracture given osteopenia. Within these limitations, subtle irregularity about the distal radius should be correlated to point tenderness. [facility]
== END 2018-05-31 15:12 | disposition home or self-care (01) ==
LOC: ED 13:23
DX: S63.501A Unspecified sprain of right wrist, initial encounter (principal); W19.XXXA Unspecified fall, initial encounter; I25.2 Old myocardial infarction; E11.9 Type 2 diabetes mellitus without complications; F17.200 Nicotine dependence, unspecified, uncomplicated; Z95.5 Presence of coronary angioplasty implant and graft
CPT/HCPCS: 29125; 99283

== ENCOUNTER 2019-02-07 10:20 | Emergency (ER) | payer OTHER ==
[2019-02-07] MEDS ORDERED: BUFFERED LIDOCAINE 10 ML SYRINGE SUBQ STA (12:09)
[2019-02-07] MEDS ORDERED: cephALEXin 250 MG CAPSULE PO STA (12:09)
--- NOTE | 2019-02-07 12:10 | ED Physician Documentation ---
PD HPI UPPER EXT INJURY - Stated complaint Stated Complaint: L PINKY INJ - Chief complaint Chief Complaint: Ext Problem - History obtained from History obtained from: Patient (Since she has had an infection of the nailbed of the left fifth finger. She is been getting some liquid out and putting topical antibiotics on it without relief.) Review of Systems Constitutional: reports: Reviewed and negative Cardiac: reports: Reviewed and negative Respiratory: reports: Reviewed and negative PD PAST MEDICAL HISTORY - Past Medical History Cardiovascular: Hypertension, [place] Respiratory: Asthma Endocrine/Autoimmune: Type 2 diabetes GI: Hiatal hernia, C.difficile, Chronic diarrhea, Hemorrhoids, Diverticulitis DATABASE ENGINEER: None : None, Frequency HEENT: None Psych: Post traumatic stress disorder Musculoskeletal: Osteoarthritis, Fibromyalgia, Rheumatoid arthritis, Osteopenia, Chronic back pain Derm: Eczema - Past Surgical History Past Surgical History: Yes General: Hiatal hernia repair /DATABASE ENGINEER: section Cardiovascular: Coronary stent - Present Medications Home Medications: Ambulatory Orders Medication Instructions Recorded Confirmed Albuterol Sulfate [Albuterol 1 puffs IH PRN PRN 01/25/14 09/20/16 Sulfate Hfa] Metformin HCl [Fortamet] 1,000 mg PO BID 03/12/14 09/20/16 Levothyroxine Sodium [Synthroid] 137 mcg PO DAILY 07/16/15 09/20/16 Omeprazole [PriLOSEC] 40 mg PO DAILY 07/16/15 09/20/16 atenoloL [Atenolol] 25 mg PO DAILY 07/16/15 09/20/16 Lidocaine Patch 5% [Lidoderm Patch] 1 each TOP DAILY PRN #10 patch 07/12/16 09/20/16 Clopidogrel [Plavix] 05/31/18 Cyclobenzaprine [Flexeril] 0 mg 05/31/18 Empagliflozin [Jardiance] 10 mg PO 05/31/18 Rosuvastatin Calcium 5 mg PO 05/31/18 Cephalexin [Keflex] 500 mg PO Q6H #28 capsule 02/07/19 Hydrocodone/Acetaminophen 1 - 2 each PO Q6H PRN #14 tablet 02/07/19 [Hydrocodon-Acetaminophen 5-325] - Allergies Allergies/Adverse Reactions: Allergies Allergy/AdvReac Type Severity Reaction Status Date / Time codeine Allergy Unknown Verified 02/07/19 10:33 Penicillins Allergy Unknown Verified 02/07/19 10:33 mushrooms Allergy Unknown Uncoded 05/31/18 13:29 - Social History Does the pt smoke?: Yes Smoking Status: Current every day smoker Does the pt drink ETOH?: No Does the pt have substance abuse?: No - Immunizations Immunizations are current?: No Immunizations: TDAP >10years/unknown - POLST Patient has POLST: No PD ED PE NORMAL - Vitals Vital signs reviewed: Yes - General General: Alert and oriented X 3, No acute distress - Extremities Extremities: Other (She has a paronychia of the ulnar side of the left fifth finger with mild cellulitis of the finger back to the DIP) - Neuro Neuro: Alert and oriented X 3, Normal speech Results - Vitals Vitals: Vital Signs - 24 hr 02/07/19 10:31 Temperature 36 C L Heart Rate 88 Respiratory 16 Rate Blood Pressure 141/79 H O2 Saturation 99 Oxygen O2 Source Room air Procedures - General procedure General procedure: After digital block with 2% lidocaine the paronychia was incised with an 11 blade, not much pus in it, nothing to culture. Departure - Departure Disposition: 01 Home, Self Care Clinical Impression: Paronychia Condition: Good Record reviewed to determine appropriate education?: Yes Instructions: ED Fingernail Infec Prescriptions: Cephalexin [Keflex] 500 mg PO Q6H #28 capsule Hydrocodone/Acetaminophen [Hydrocodon-Acetaminophen 5-325] 1 - 2 each PO Q6H PRN #14 tablet PRN Reason: pain Comments: Call your doctor to arrange a follow-up appointment, make the next available appointment. In the interim, return anytime if worse or if new symptoms develop.
[2019-02-07] MEDS ORDERED: LIDOCAINE 2% 10 ML MDV ONE (12:14)
[2019-02-07 13:14] VITALS: BP 113/83
== END 2019-02-07 13:17 | disposition home or self-care (01) ==
LOC: ED 10:20
DX: L03.012 Cellulitis of left finger (principal); I10 Essential (primary) hypertension; E11.9 Type 2 diabetes mellitus without complications; F17.200 Nicotine dependence, unspecified, uncomplicated; Z79.84 Long term (current) use of oral hypoglycemic drugs
CPT/HCPCS: 26010; 99282; 99283; A9270

== ENCOUNTER 2020-02-11 15:17 | Emergency (ER) | payer OTHER ==
--- NOTE | 2020-02-11 16:43 | ED Physician Documentation ---
PD HPI SKIN - Stated complaint Stated Complaint: RT SIDE LUMP/FEMALE - Chief complaint Chief Complaint: Wound - History obtained from History obtained from: Patient - History of Present Illness Timing - onset: How many weeks ago (2) Timing - duration: Weeks (2) Timing - details: Gradual onset, Waxing and waning (but increased considerably the past 2-3 days) Location: Other (right buttock) Quality / character: Painful, Discolored, Swelling. No: Draining Associated symptoms: No: Fever, Myalgias, N/V/D Similar symptoms before: Diagnosis (prior abscess remotely. No regular problems.) Review of Systems Constitutional: denies: Fever, Chills Nose: denies: Rhinorrhea / runny nose, Congestion Throat: denies: Sore throat Respiratory: denies: Cough GI: denies: Abdominal Pain, Nausea, Vomiting Skin: reports: Lesions (just right gluteal area) PD PAST MEDICAL HISTORY - Past Medical History Past Medical History: Yes Cardiovascular: Hypertension, [place] Respiratory: Asthma Neuro: None Endocrine/Autoimmune: Type 2 diabetes GI: Hiatal hernia, C.difficile, Chronic diarrhea, Hemorrhoids, Diverticulitis INDEPENDENT INSURANCE ADJUSTER: None : None, Frequency HEENT: None Psych: Post traumatic stress disorder Musculoskeletal: Osteoarthritis, Fibromyalgia, Rheumatoid arthritis, Osteopenia, Chronic back pain Derm: Eczema - Past Surgical History Past Surgical History: Yes General: Hiatal hernia repair /INDEPENDENT INSURANCE ADJUSTER: section Cardiovascular: Coronary stent - Present Medications Home Medications: Ambulatory Orders Medication Instructions Recorded Confirmed Albuterol Sulfate [Albuterol 1 puffs IH PRN PRN 01/25/14 09/20/16 Sulfate Hfa] Metformin HCl [Fortamet] 1,000 mg PO BID 03/12/14 09/20/16 Levothyroxine Sodium [Synthroid] 137 mcg PO DAILY 07/16/15 09/20/16 Omeprazole [PriLOSEC] 40 mg PO DAILY 07/16/15 09/20/16 atenoloL [Atenolol] 25 mg PO DAILY 07/16/15 09/20/16 Lidocaine Patch 5% [Lidoderm Patch] 1 each TOP DAILY PRN #10 patch 07/12/16 09/20/16 Clopidogrel [Plavix] 05/31/18 Cyclobenzaprine [Flexeril] 0 mg 05/31/18 Empagliflozin [Jardiance] 10 mg PO 05/31/18 Rosuvastatin Calcium 5 mg PO 05/31/18 Cephalexin [Keflex] 500 mg PO Q6H #28 capsule 02/07/19 Hydrocodone/Acetaminophen 1 - 2 each PO Q6H PRN #14 tablet 02/07/19 [Hydrocodon-Acetaminophen 5-325] HYDROcod/ACETAM 5/325 [[place] 5/325] 1 ea PO Q6H PRN #15 tablet 02/11/20 Sulfamethox/Trimeth 800/160 1 each PO BID #14 tablet 02/11/20 [Bactrim Ds 800/160] - Allergies Allergies/Adverse Reactions: Allergies Allergy/AdvReac Type Severity Reaction Status Date / Time codeine Allergy Unknown Verified 02/11/20 15:25 Penicillins Allergy Unknown Verified 02/11/20 15:25 mushrooms Allergy Unknown Uncoded 05/31/18 13:29 - Social History Does the pt smoke?: Yes Smoking Status: Current every day smoker Does the pt drink ETOH?: No Does the pt have substance abuse?: No - Immunizations Immunizations are current?: No Immunizations: TDAP >10years/unknown - POLST Patient has POLST: No PD ED PE NORMAL - Vitals Vital signs reviewed: Yes - General General: Alert and oriented X 3, Well developed/nourished, Other (appears in pain and lying to side to avoid pressure on buttock) - Cardiac Cardiac: RRR, No murmur - Respiratory Respiratory: Clear bilaterally - Abdomen Abdomen: Soft, Non tender - Derm Derm: Normal color, Warm and dry, Other (right buttock with local area of induration, redness, tender, with small white poiting but no drainage. U/S bedside showing small fluid collection at center of area c/w abscess and cellulitis ) Results - Vitals Vitals: Vital Signs - 24 hr 02/11/20 02/11/20 15:25 18:20 Temperature 36.6 C 36.7 C Heart Rate 89 92 Respiratory 18 16 Rate Blood Pressure 135/70 H 119/78 O2 Saturation 97 94 Oxygen O2 Source Room air - Labs Labs: Microbiology 02/11/20 17:38 Wound Culture - Preliminary Buttock - Right Procedures - Abscess I&D (location) right buttock Preparation: Confirmed with ultrasound, Lidocaine 2 %, With epi Incision: Incised with scalpel, Purulent drainage, Irrigated, Culture obtained. No: Packed Other: Pt tolerated well, Dressing applied, Antibiotic prescribed PD MEDICAL DECISION MAKING - ED course Complexity details: considered differential (very tender so pretreated with IM pain med as well. Given initial abx in ER at double dose for first dose. ), d/w patient Departure - Departure Disposition: 01 Home, Self Care Clinical Impression: Abscess of right buttock Condition: Stable Record reviewed to determine appropriate education?: Yes Instructions: ED Abscess IandD Follow-Up: TOMASZ BOURGEOIS ARNP [Primary Care Provider] - Prescriptions: Sulfamethox/Trimeth 800/160 [Bactrim Ds 800/160] 1 each PO BID #14 tablet HYDROcod/ACETAM 5/325 [[place] 5/325] 1 ea PO Q6H PRN #15 tablet PRN Reason: Pain Comments: Warm moist compresses or soaks to the area several times daily. Bactrim antibiotic twice a day for a week. Add Tylenol or ibuprofen or pain medicine as needed. Recheck if not fully resolved over the next several days. Discharge Date/Time: 02/11/20 18:20
[2020-02-11] MEDS ORDERED: HYDROmorphone 2 MG/ML VIAL IM STA (16:56)
[2020-02-11] MEDS ORDERED: KETOROLAC 30 MG/ML VIAL IM STA (16:56)
[2020-02-11] MEDS ORDERED: SULFAMETH/TRIMETH DS 800/160 MG TABLET PO STA (16:57)
[2020-02-11 18:20] VITALS: BP 119/78
--- OUTSIDE RECORDS SUMMARY | 2020-02-19 00:23 | EXTERNAL MEDICAL SUMMARY RPT | Continuity of Care Document ---
:1960 Demographics Phone Unavailable Preferred Language Unknown Marital Status Unknown Congregational Affiliation Unknown Race Unknown Ethnic Group Unknown Author Organization [place] Address [address] [phone] Phone Care Team Providers Name Role Phone BK Unavailable Unavailable Problems date description facility 2020-02-11 15:17 TYPE 2 DIABETES MELLITUS WITHOUT [facility] COMPLICATIONS 2020-02-11 15:17 NICOTINE DEPENDENCE, UNSPECIFIED, [facility] UNCOMPLICATED 2020-02-11 15:17 ESSENTIAL (PRIMARY) HYPERTENSION [facility] 2020-02-11 15:17 CUTANEOUS ABSCESS OF BUTTOCK [facility] 2020-02-11 15:17 HALF-WAY (CURRENT) USE OF [facility] ANTITHROMBOTICS/ANTIPLA 2020-02-11 15:17 HALF-WAY (CURRENT) USE OF ORAL [facility] HYPOGLYCEMIC DRUGS Allergies date description facility ADHESIVE \T\ TAPE [facility] CODEINE PHOSPHATE [facility]ONE [facility] mushrooms [facility] NSAIDS (NON-STEROIDAL ANTI-INFLAMMATORY DRUG) [facility] NO KNOWN ALLERGIES [facility] ASPIRIN [facility] ATENOLOL [facility] CHLORHEXIDINE GLUCONATE [facility] CHLORHEXIDINE [facility] SUMATRIPTAN SUCCINATE [facility] LATEX [facility] Penicillins [facility] codeine [facility] Results test status date ordered by attending specimen markie e null F 2020-02-11 MARCELA Stern 5 18:06:00 17:38:00 null P 2020-02-11 MARCELA Stern 5 18:06:00 17:38:00 null F 2020-02-11 MARCELA Stern 5 18:06:00 17:38:00 null P 2020-02-11 SULAIMAN. Matthias Stern 5 18:06:00 17:38:00 null F 2020-02-11 SULAIMAN. Matthias Stern 5 18:06:00 17:38:00 null P 2020-02-11 SULAIMAN. Matthias Stern 5 18:06:00 17:38:00 null F 2020-02-11 SULAIMAN. Matthias Stern 5 18:06:00 17:38:00 null P 2020-02-11 SULAIMAN. Matthias Stern 5 18:06:00 17:38:00 null P 2020-02-11 SULAIMAN. Matthias Stern 5 18:06:00 17:38:00 null P 2020-02-11 SULAIMAN. Matthias Stern 5 18:06:00 17:38:00 null F 2020-02-11 SULAIMAN. Matthias Stern 5 18:06:00 17:38:00 null P 2020-02-11 SULAIMAN. Matthias Stern 5 18:06:00 17:38:00 null F 2020-02-11 SULAIMAN. Matthias Stern 5 18:06:00 17:38:00 null P 2020-02-11 SULAIMAN. Matthias Stern 5 18:06:00 17:38:00 facility observation status value reference units lab abnor mal line range code notes [facility] F [facility] POSITIVE COCCI [facility] P FEW GR[facility] POSITIVE COCCI [facility] STAIN: [facility] P GRAM unknown [facility] STAIN: [facility] mposite[3^ 3+ GROWTH] [facility] mposite[3^ 3+ GROWTH] [facility] mposite[CC .6^COLONY COUNT] [facility] mposite[CC .6^COLONY COUNT] [facility] mposite[ID NADEEM^ID/NADEEM COM*] [facility] mposite[SE NSI^SENSIT IVITIES TO FOLLOW] [facility] F MANY [facility] unknown [facility] mposite[ST AAUR^STAPH YLOCOCCUS AUREUS^STA PHYLOCOCCU S AUREUS] [facility] mposite[ST AAUR^STAPH YLOCOCCUS AUREUS^STA PHYLOCOCCU S AUREUS] test status date ordered by attending specimen markie e null F 2020-02-11 SULAIMAN. Matthias Stern 5 18:06:00 17:38:00 null P 2020-02-11 SULAIMAN. Matthias Stern 5 18:06:00 17:38:00 null F 2020-02-11 SULAIMAN. Matthias Stern 5 18:06:00 17:38:00 null P 2020-02-11 SULAIMAN. Matthias Stern 5 18:06:00 17:38:00 null F 2020-02-11 SULAIMAN. Matthias Stern 5 18:06:00 17:38:00 null P 2020-02-11 SULAIMAN. Matthias Stern 5 18:06:00 17:38:00 null F 2020-02-11 SULAIMAN. Matthias Stern 5 18:06:00 17:38:00 null P 2020-02-11 SULAIMAN. Matthias Stern 5 18:06:00 17:38:00 null F 2020-02-11 SULAIMAN. Matthias Stern 5 18:06:00 17:38:00 null P 2020-02-11 SULAIMAN.01 Matthias Stern 5 18:06:00 17:38:00 null F 2020-02-11 SULAIMAN. Matthias Stern 5 18:06:00 17:38:00 null P 2020-02-11 SULAIMAN. Matthias Stern 5 18:06:00 17:38:00 null F 2020-02-11 SULAIMAN. Matthias Stern 5 18:06:00 17:38:00 null P 2020-02-11 SULAIMAN. Matthias Stern 5 18:06:00 17:38:00 null F 2020-02-11 SULAIMAN. Matthias Stern 5 18:06:00 17:38:00 null P 2020-02-11 SULAIMAN. Matthias Stern 5 18:06:00 17:38:00 null F 2020-02-11 SULAIMAN. Matthias Stern 5 18:06:00 17:38:00 null P 2020-02-11 SULAIMAN. Matthias Stern 5 18:06:00 17:38:00 null F 2020-02-11 SULAIMAN. Matthias Stern 5 18:06:00 17:38:00 null P 2020-02-11 SULAIMAN. Matthias Stern 5 18:06:00 17:38:00 null F 2020-02-11 SULAIMAN. Matthias Stern 5 18:06:00 17:38:00 null P 2020-02-11 SULAIMAN. Matthias Stern 5 18:06:00 17:38:00 null F 2020-02-11 SULAIMAN. Matthias Stern 5 18:06:00 17:38:00 null P 2020-02-11 SULAIMAN. Matthias Stern 5 18:06:00 17:38:00 null F 2020-02-11 SULAIMAN. Matthias Stern 5 18:06:00 17:38:00 null P 2020-02-11 SULAIMAN. Matthias Stern 5 18:06:00 17:38:00 null F 2020-02-11 SULAIMAN. Matthias Stern 5 18:06:00 17:38:00 null P 2020-02-11 MARCELA Stern 0 5 18:06:00 17:38:00 null F 2020-02-11 MARCELA Stern 5 18:06:00 17:38:00 null P 2020-02-11 MARCELA Stern 5 18:06:00 17:38:00 facility observation status value reference units lab abnor mal line range code notes [facility] F Generi unknown S [facility] cCompos ite[^<= 0.25] [facility] P Generi unknown S [facility] cCompos ite[^<= 0.25] [facility] F Generi unknown S [facility] cCompos ite[^<= 0.5] [facility] P Generi unknown S [facility] cCompos ite[^<= 0.5] [facility] F Generi unknown R [facility] cCompos ite[^>= 8] [facility] P Generi unknown R [facility] cCompos ite[^>= 8] [facility] Generi unknown S [facility] cCompos ite[^<= 0.5] [facility] P Generi unknown S [facility] cCompos ite[^<= 0.5] [facility] unknown [facility] cCompos ite[^<= 0.12] [facility] P Generi unknown S [facility] cCompos ite[^<= 0.12] [facility] unknown S [facility] cCompos ite[^2] [facility] P Generi unknown S [facility] cCompos ite[^2] [facility] F Generi unknown S [facility] cCompos ite[^<= 0.25] [facility] P Generi unknown S [facility] cCompos ite[^<= 0.25] [facility] Generi unknown S [facility] cCompos ite[^0. 5] [facility] P Generi unknown S [facility] cCompos ite[^0. 5] [facility] Generi unknown R [facility] cCompos ite[^>= 0.5] [facility] P Generi unknown R [facility] cCompos ite[^>= 0.5] [facility] Generi unknown S [facility] cCompos ite[^<= 0.25] [facility] P Generi unknown S [facility] cCompos ite[^<= 0.25] [facility] F Generi unknown [facility] cCompos ite[^<= 0.5] [facility] P Generi unknown S [facility] cCompos ite[^<= 0.5] [facility] F Generi unknown [facility] cCompos ite[^<= 10] [facility] P Generi unknown [facility] cCompos ite[^<= 10] [facility] Generi unknown S [facility] cCompos ite[^<= 1] [facility] P Generi unknown [facility] cCompos ite[^<= 1] [facility] F Generi unknown [facility] cCompos ite[^<= 0.12] [facility] P Generi unknown [facility] cCompos ite[^<= 0.12] [facility] F Generi unknown [facility] cCompos ite[^1] [facility] P Generi unknown [facility] cCompos ite[^1] Social History date description facility [id number]
== END 2020-02-11 18:20 | disposition home or self-care (01) ==
LOC: ED 15:17
DX: L02.31 Cutaneous abscess of buttock (principal); I10 Essential (primary) hypertension; E11.9 Type 2 diabetes mellitus without complications; Z79.84 Long term (current) use of oral hypoglycemic drugs; F17.200 Nicotine dependence, unspecified, uncomplicated; Z79.02 Long term (current) use of antithrombotics/antiplatelets
CPT/HCPCS: 10060; 87070; 87181; 87205; 96372; 99283; A9270; J1170

== ENCOUNTER 2021-10-13 15:33 | Emergency (ER) | payer OTHER ==
--- NOTE | 2021-10-13 16:08 | ED Physician Documentation ---
PD HPI SKIN - Stated complaint Stated Complaint: BREAST INFECTION - Chief complaint Chief Complaint: Wound - History obtained from History obtained from: Patient - History of Present Illness Timing - onset: How many days ago (1-2 days of drainage, redness, tender in area of abrasion of skin obtained a week ago when door slammed against her.) Timing - duration: Days Timing - details: Gradual onset Location: Other (right lateral breast) Quality / character: Painful, Discolored (red), Swelling, Draining (cloudy white fluid) Associated symptoms: No: Fever, Myalgias Recently seen: Not recently seen Review of Systems Constitutional: denies: Fever, Chills Skin: reports: Lesions PD PAST MEDICAL HISTORY - Past Medical History Cardiovascular: Hypertension, High cholesterol, [place] Respiratory: Other Neuro: None Endocrine/Autoimmune: Type 2 diabetes, HyPOthyroidism GI: GERD, Hiatal hernia, C.difficile, Chronic diarrhea, Hemorrhoids, Diverticulitis DOPE POURER: None : Frequency HEENT: None Psych: Post traumatic stress disorder Musculoskeletal: Osteoarthritis, Fibromyalgia, Rheumatoid arthritis, Osteopenia, Chronic back pain Derm: Eczema - Past Surgical History Past Surgical History: Yes General: Hiatal hernia repair /DOPE POURER: section Cardiovascular: Coronary stent - Present Medications Home Medications: Ambulatory Orders Medication Instructions Recorded Confirmed Albuterol Sulfate [Albuterol 1 puffs IH PRN PRN 01/25/14 07/10/21 Sulfate Hfa] Metformin HCl [Fortamet] 1,000 mg PO BID 03/12/14 07/10/21 Levothyroxine Sodium [Synthroid] 137 mcg PO DAILY 07/16/15 07/10/21 Omeprazole [PriLOSEC] 40 mg PO DAILY 07/16/15 07/10/21 atenoloL [Atenolol] 25 mg PO DAILY 07/16/15 07/10/21 Lidocaine Patch 5% [Lidoderm Patch] 1 each TOP DAILY PRN #10 patch 07/12/16 07/10/21 Clopidogrel [Plavix] 75 mg ORAL DAILY 05/31/18 07/10/21 Cyclobenzaprine [Flexeril] 10 mg ORAL PRN PRN 05/31/18 07/10/21 Empagliflozin [Jardiance] 10 mg PO DAILY 05/31/18 07/10/21 Rosuvastatin Calcium 5 mg PO HS 05/31/18 07/10/21 Albuterol Sulf [Ventolin Hfa 1 - 2 puffs INH Q4HR PRN #1 inhaler 07/10/21 Inhaler] Doxycycline Hyclate 100 mg PO BID #20 tab.sr 07/10/21 HYDROcod/ACETAM 5/325 [[place] 5/325] 1 - 2 tab PO Q6H PRN #15 tablet 07/10/21 HYDROcod/ACETAM 5/325 [[place] 5/325] 1 ea PO Q6H PRN #12 tablet 10/13/21 Mupirocin 2% Oint [Bactroban 2% 1 applic TOP TID #15 gm 10/13/21 Oint] Sulfamethox/Trimeth 800/160 1 each PO BID #14 tablet 10/13/21 [Bactrim Ds 800/160] - Allergies Allergies/Adverse Reactions: Allergies Allergy/AdvReac Type Severity Reaction Status Date / Time codeine Allergy Unknown Verified 10/13/21 15:45 Penicillins Allergy Unknown Verified 10/13/21 15:45 mushrooms Allergy Unknown Uncoded 10/13/21 15:45 narcotic AdvReac Itching Uncoded 10/13/21 15:45 - Social History Does the pt smoke?: Yes Smoking Status: Current some day smoker Does the pt drink ETOH?: No Does the pt have substance abuse?: Yes - Immunizations Immunizations are current?: No Immunizations: TDAP >10years/unknown - POLST Patient has POLST: No PD ED PE NORMAL - Vitals Vital signs reviewed: Yes - General General: Alert and oriented X 3, No acute distress, Well developed/nourished - Derm Derm: Normal color, Warm and dry, Other (right lateral breast with superficial abrasion about 2 cm diameter that has surrounding redness and warmth. Mild cloudy white drainage. No fluctuance. ) Results - Vitals Vitals: Vital Signs - 24 hr 10/13/21 17:25 Temperature 36.6 C Heart Rate 95 Respiratory 16 Rate Blood Pressure 136/78 H O2 Saturation 98 Oxygen O2 Source Room air - Labs Labs: Microbiology 10/13/21 16:38 Wound Culture - Preliminary Breast - Right PD MEDICAL DECISION MAKING - ED course Complexity details: considered differential (wound infection of lateral breast abrasion. Weeping and culture obtained. ), d/w patient Departure - Departure Disposition: 01 Home, Self Care Clinical Impression: Infected abrasion of skin of right breast Condition: Stable Record reviewed to determine appropriate education?: Yes Instructions: ED Staph Infec Abx Tx Only Follow-Up: RADHA PATTERSON MD [Primary Care Provider] - Prescriptions: Sulfamethox/Trimeth 800/160 [Bactrim Ds 800/160] 1 each PO BID #14 tablet Mupirocin 2% Oint [Bactroban 2% Oint] 1 applic TOP TID #15 gm HYDROcod/ACETAM 5/325 [[place] 5/325] 1 ea PO Q6H PRN #12 tablet PRN Reason: Pain Comments: Continue with cleansing the wound once or twice a day with soap and water or peroxide and water. Apply mupirocin antibiotic ointment to the area and bandage as needed for drainage. Bactrim antibiotic twice daily for the next 5 to 7 days until this appears well- healed. Recheck if not improving well over the next few days. Tylenol if needed for pain every 4-6 hours or hydrocodone/acetaminophen if needed for worse pain. I sent your prescriptions to [facility] pharmacy in [place]. I am prescribing a short course of narcotic pain medication for you. These are potentially dangerous and addictive medications that should be used carefully. These medications may constipate you. Take an tmyr-icl-gyegvyc stool softener such as docusate twice daily with plenty of water while taking these medications. If you go 24 hours without a bowel movement, take nasn-iow-nbuuliz MiraLAX, per package instructions. Do not drink or drive while taking these medications. If you received narcotic or sedating medications while in the emergency department do not drive for 24 hours. Store this medication in a safe, secure place and out of reach of children. It is a violation of federal law to give or sell this medication to another person or to use in a manner other than prescribed. The ED will not refill narcotic prescriptions, including prescriptions lost or stolen. You can dispose of unwanted medications at the [facility]'s office or at several pharmacies such as [facility] [employer]. We did do a culture of the wound. This will result in a couple of days. We w ill call if we need to modify the antibiotic based on the result of that. Discharge Date/Time: 10/13/21 17:25
[2021-10-13] MEDS ORDERED: SULFAMETH/TRIMETH DS 800/160 MG TABLET PO STA (16:44)
[2021-10-13] MEDS ORDERED: MUPIROCIN 2% OINT 1 GM TOP STA (16:44)
[2021-10-13 17:33] VITALS: BP 136/78
== END 2021-10-13 17:25 | disposition home or self-care (01) ==
LOC: ED 15:33
DX: S20.111A Abrasion of breast, right breast, initial encounter (principal); W22.8XXA Striking against or struck by other objects, initial encounter; I10 Essential (primary) hypertension; E11.9 Type 2 diabetes mellitus without complications; Z79.84 Long term (current) use of oral hypoglycemic drugs; F17.200 Nicotine dependence, unspecified, uncomplicated
CPT/HCPCS: 87070; 87205; 99282; 99283; A9270